=== PATIENT | male | born 1990 | race African-American/Black ===

== ENCOUNTER 2018-05-08 00:08 | Emergency (ER) | payer OTHER ==
[2018-05-08] MEDS: NS 1,000 ML IV (00:56)
[2018-05-08] MEDS: KETOROLAC 30 MG/ML VIAL (J1885) IV (00:58)
[2018-05-08 01:01] LABS: BASO % 0.4 % (0.0-1.0); EOS # 0.1 10^3/uL (0.0-0.50); EOS % 0.8 % (0.0-3.0); HEMATOCRIT 39.6 % (42.0-52.0); HEMOGLOBIN 13.6 g/dl (13.5-17.5); IMMATURE GRANULOCYTE % 0.4 % (0-3.0); LYMPH # 2.9 10^3/uL (1.5-6.5); LYMPH % 38.1 % (24.0-44.0); MEAN CORPUSCULAR HEMOGLOBIN 30.1 pg (27.0-33.0); MEAN CORPUSCULAR HGB CONC 34.3 g/dl (32.0-36.5); MEAN CORPUSCULAR VOLUME 87.6 fl (80.0-96.0); MONO # 0.5 10^3/uL (0.0-0.8); MONO % 6.4 % (0.0-5.0); NEUTROPHILS % 53.9 % (36.0-66.0); PLATELET COUNT, AUTOMATED 171 10^3/uL (150-450); RED BLOOD COUNT 4.52 10^6/uL (4.30-6.10); RED CELL DISTRIBUTION WIDTH 12.8 % (11.5-14.5); WHITE BLOOD COUNT 7.5 10^3/uL (4.0-10.0)
[2018-05-08 01:32] LABS: ANION GAP 9 MEQ/L (8-16); BLOOD UREA NITROGEN 13 MG/DL (7-18); CALCIUM LEVEL 7.7 MG/DL (8.5-10.1); CARBON DIOXIDE LEVEL 25 MEQ/L (21-32); CHLORIDE LEVEL 109 MEQ/L (98-107); CPK CREATINE PHOSPHOKINASE 309 U/L (39-308); CREATININE FOR GFR 1.18 MG/DL (0.70-1.30); GLOMERULAR FILTRATION RATE > 60.0 (>60); GLUCOSE, FASTING 92 MG/DL (70-100); MB/CK RELATIVE INDEX 0.36 (< OR =4); POTASSIUM SERUM 3.8 MEQ/L (3.5-5.1); SODIUM LEVEL 143 MEQ/L (136-145); TROPONIN I < 0.02 NG/ML (< 0.10)
== END 2018-05-08 02:16 | disposition home or self-care (01) ==
LOC: M ED 00:08
DX: R07.89 Other chest pain (principal)
CPT/HCPCS: J1885

== ENCOUNTER 2019-09-25 14:11 | Emergency (ER) | payer OTHER ==
[~2019-09-25] VITALS: Ht 175.3 cm; Wt 97.1 kg
[~2019-09-25 14:11] MED LIST: NAPR-837 PO
[2019-09-25] MEDS ORDERED: BICILLIN L-A 2,400,000 UNIT/4 ML SYRINGE (J0561-24)PENICILLIN G BENZATINE IM ONE (15:30)
[2019-09-25 16:20] LABS: CHLAMYDIA DNA AMPLIFICATION NEGATIVE (NEGATIVE); GC DNA AMPLIFICATION NEGATIVE (NEGATIVE)
[2019-09-25 16:23] VITALS: BP 149/83
[2019-09-26 10:38] LABS: HEPATITIS A ANTIBODY IGM NEGATIVE (NEGATIVE); HEPATITIS B CORE ANTIBODY IGM NEGATIVE (NEGATIVE); HEPATITIS B SURFACE ANTIGEN NEGATIVE (NEGATIVE); HEPATITIS C VIRUS ABY INDEX < 0.0 INDEX (<0.8)
[2019-09-28 00:06] LABS: HSV IgM TYPES 1&2 <0.91 Ratio (0.00-0.90)
== END 2019-09-25 16:26 | disposition home or self-care (01) ==
LOC: M ED 14:11
DX: Z20.2 Contact with and (suspected) exposure to infections with a predominantly sexual mode of transmission (principal)
CPT/HCPCS: 81001; 86694; 86705; 86709; 86780; 86803; 87070; 87205; 87340; 87491; 87591; 96372; 99284; J0561

== ENCOUNTER 2021-01-07 16:34 | Emergency (ER) | payer OTHER ==
[~2021-01-07] VITALS: Ht 175.3 cm; Wt 104.5 kg
--- NOTE | 2021-01-07 17:53 | REP ---
INDICATION: CRUSH INJ. COMPARISON: None. TECHNIQUE: Four views of the left small finger are provided. FINDINGS: Four views of the left small finger demonstrate soft tissue swelling and dislodgement of the nail at the distal phalanx of the small finger. This is consistent with a soft tissue injury. No fracture is seen. No opaque foreign body is noted. . IMPRESSION: Soft tissue injury at the nailbed. No fracture or opaque foreign body seen.. <Electronically signed by Mark Mason > 01/07/21 [id number]
[2021-01-07] MEDS ORDERED: LIDOCAINE 1% MDV 20ML VIAL SC ONE (21:15)
[2021-01-07 21:46] VITALS: BP 158/93
== END 2021-01-07 21:50 | disposition home or self-care (01) ==
LOC: M ED 16:34
DX: S67.196A Crushing injury of right little finger, initial encounter (principal); S61.306A Unspecified open wound of right little finger with damage to nail, initial encounter; W23.1XXA Caught, crushed, jammed, or pinched between stationary objects, initial encounter; Y92.009 Unspecified place in unspecified non-institutional (private) residence as the place of occurrence of the external cause; Y93.89 Activity, other specified; Y99.8 Other external cause status